=== PATIENT | male | born 2000 | race African-American/Black ===

== ENCOUNTER 2019-06-08 18:28 | Emergency (ER) | payer SELFPAY ==
[~2019-06-08] VITALS: Ht 167.6 cm; Wt 62.0 kg
[2019-06-08] MEDS ORDERED: TETANUS, DIPHTHERIA, PERTUSSIS VAC/PF 0.5ML (>7YR OLD) IM ONE (19:30)
[2019-06-08] MEDS ORDERED: LIDOCAINE HCL/PF 1% 10 MG/ML 5ML VIAL IJ ONE (19:30)
[2019-06-08] MEDS ORDERED: KETOROLAC 30MG/ML VIAL IM ONE (19:30)
[2019-06-08 20:28] VITALS: BP 110/58
== END 2019-06-08 21:15 | disposition home or self-care (01) ==
LOC: ER 18:28
DX: S00.83XA Contusion of other part of head, initial encounter (principal); W86.8XXA Exposure to other electric current, initial encounter; Y93.89 Activity, other specified; Y92.89 Other specified places as the place of occurrence of the external cause; Y99.8 Other external cause status
CPT/HCPCS: 96372; 99283; J1885; J3490